=== PATIENT | male | born 1980 | race Caucasian/White ===

== ENCOUNTER 2017-01-12 16:58 | Emergency (ER) | payer OTHER ==
[~2017-01-12] VITALS: Ht 167.6 cm; Wt 89.8 kg
[2017-01-12 18:04] VITALS: BP 134/74
== END 2017-01-12 18:04 | disposition home or self-care (01) ==
LOC: ED 16:58
DX: M54.2 Cervicalgia (principal); M54.5 Low back pain; R07.89 Other chest pain; V09.9XXA Pedestrian injured in unspecified transport accident, initial encounter; Y93.89 Activity, other specified; Y92.89 Other specified places as the place of occurrence of the external cause; Y99.8 Other external cause status

== ENCOUNTER 2017-04-12 10:01 | Emergency (ER) | payer OTHER ==
[~2017-04-12] VITALS: Ht 167.6 cm; Wt 84.8 kg
[2017-04-12 11:15] LABS: BASOPHIL % 0.6 % (0-2); PLATELET COUNT 329 x10^3mcL (130-400); RED CELL DISTRIBUTION WIDTH 14.2 % (11.5-14.5)
[2017-04-12 11:28] LABS: ALBUMIN 3.7 g/dL (3.4-5.0); ALKALINE PHOSPHATASE 88 U/L (46-116); ALT/SGPT 37 U/L (16-63); AMYLASE 59 U/L (25-115); AST/SGOT 21 U/L (15-37); BILIRUBIN TOTAL 0.6 mg/dL (0.20-1.00); CALCIUM 8.5 mg/dL (8.5-10.1); CARBON DIOXIDE 28.7 mmol/L (21-32); CHLORIDE SERUM 102 mmol/L (98-107); CREATININE SERUM 0.9 mg/dL (0.7-1.3); GFR1 > 60 mL/min; GLUCOSE SERUM 98 mg/dL (74-106); LIPASE 224 IU/L (73-393); POTASSIUM SERUM 3.8 mmol/L (3.5-5.1); SODIUM SERUM 140 mmol/L (136-145)
[2017-04-12 13:01] LABS: UA SPECIFIC GRAVITY 1.025 (1.005-1.035); microscopic required? YES; urine erythrocyte NEGATIVE (NEGATIVE)
[2017-04-12 13:04] LABS: AMPHETAMINE QUAL UR POSITIVE (NEG <=1000)
[2017-04-12 13:42] VITALS: BP 130/79
== END 2017-04-12 13:42 | disposition home or self-care (01) ==
LOC: ED 10:01
PROVIDERS: Emergency Medicine
DX: R10.30 Lower abdominal pain, unspecified (principal); R11.10 Vomiting, unspecified
CPT/HCPCS: J2405; J3490; J7030

== ENCOUNTER 2017-11-16 11:54 | Emergency (ER) | payer OTHER ==
[~2017-11-16] VITALS: Ht 167.6 cm; Wt 80.3 kg
[2017-11-16 12:01] VITALS: Ht 167.6 cm; Wt 80.3 kg
[2017-11-16 15:12] VITALS: BP 146/89
== END 2017-11-16 13:41 | disposition home or self-care (01) ==
LOC: ED 11:54
DX: M54.5 Low back pain (principal); X50.0XXA Overexertion from strenuous movement or load, initial encounter; Y93.89 Activity, other specified; Y92.89 Other specified places as the place of occurrence of the external cause; Y99.8 Other external cause status
CPT/HCPCS: J1885

== ENCOUNTER 2018-07-19 02:17 | Emergency (ER) | payer OTHER ==
[~2018-07-19] VITALS: Ht 167.6 cm; Wt 73.0 kg
[2018-07-19 02:22] VITALS: Ht 167.6 cm; Wt 73.0 kg
[2018-07-19 06:13] VITALS: BP 134/84
== END 2018-07-19 06:13 | disposition home or self-care (01) ==
LOC: ED 02:17
DX: M54.9 Dorsalgia, unspecified (principal)
CPT/HCPCS: J1885

== ENCOUNTER 2018-08-18 08:19 | Emergency (ER) | payer OTHER ==
[~2018-08-18] VITALS: Ht 167.6 cm; Wt 81.6 kg
[2018-08-18 08:28] VITALS: BP 132/79; Ht 167.6 cm; Wt 81.6 kg
== END 2018-08-18 09:17 | disposition home or self-care (01) ==
LOC: ED 08:19
DX: M79.604 Pain in right leg (principal); R20.2 Paresthesia of skin
CPT/HCPCS: J2270

== ENCOUNTER 2020-05-08 20:57 | Emergency (ER) | payer OTHER ==
[~2020-05-08] VITALS: Ht 167.6 cm; Wt 90.9 kg
[2020-05-08 21:10] VITALS: Ht 167.6 cm; Wt 90.9 kg
[2020-05-08] MEDS ORDERED: DOXYCYCLINE100 M5 PO (22:20)
[2020-05-08] MEDS ORDERED: IBU600 M2 PO (22:20)
[2020-05-08] MEDS ORDERED: KEF500 PO (22:20)
[2020-05-08 23:07] VITALS: BP 138/89
== END 2020-05-08 23:07 | disposition home or self-care (01) ==
LOC: ED 20:57
DX: N39.0 Urinary tract infection, site not specified (principal)
CPT/HCPCS: 87491; 87591; J0696